=== PATIENT | female | born 1980 | race Caucasian/White ===

== ENCOUNTER 2017-07-05 07:49 | Emergency (ER) | payer OTHER ==
[~2017-07-05] VITALS: Ht 160 cm; Wt 84.0 kg
[2017-07-05] MEDS ORDERED: OXYcodone/APAP 5/325MG TABLET PO ONE (08:00)
[2017-07-05] MEDS ORDERED: KETOROLAC 30 MG/1 ML ONE (08:16)
[2017-07-05] MEDS ORDERED: DIAZEPAM 5 MG TABLET ONE (08:16)
[2017-07-05] MEDS ORDERED: DIAZEPAM 10 MG TABLET PO ONE (08:30)
[2017-07-05] MEDS ORDERED: KETOROLAC 30 MG/1 ML IM ONE (08:30)
[2017-07-05] MEDS ORDERED: FEXO1TAB25 PO (08:46)
[2017-07-05] MEDS ORDERED: mvi PO (08:46)
[2017-07-05 09:01] VITALS: BP 122/78
== END 2017-07-05 09:20 | disposition home or self-care (01) ==
LOC: ED 09:10
DX: S39.012A Strain of muscle, fascia and tendon of lower back, initial encounter (principal); V80.010A Animal-rider injured by fall from or being thrown from horse in noncollision accident, initial encounter; Y93.52 Activity, horseback riding; Y92.89 Other specified places as the place of occurrence of the external cause; Y99.8 Other external cause status
CPT/HCPCS: 72110; 72190; 96372; 99284; J1885